=== PATIENT | male | born 1990 | race Caucasian/White ===

== ENCOUNTER 2017-04-14 16:58 | Emergency (ER) | payer OTHER ==
[~2017-04-14] VITALS: Ht 167.6 cm; Wt 80.9 kg
[2017-04-14 16:59] VITALS: BP 123/79
[2017-04-14] MEDS ORDERED: LIDOCAINE 2% MDV 20 ML VIAL SC ONE (17:30)
[2017-04-14] MEDS ORDERED: AUGM875T28 PO (17:43)
== END 2017-04-14 17:48 | disposition home or self-care (01) ==
LOC: M ED 17:44
DX: S61.542A Puncture wound with foreign body of left wrist, initial encounter (principal); W26.9XXA Contact with unspecified sharp object(s), initial encounter; Y92.018 Other place in single-family (private) house as the place of occurrence of the external cause; Y93.89 Activity, other specified; Y99.8 Other external cause status